=== PATIENT | female | born 1960 | race Caucasian/White ===

== ENCOUNTER 2020-03-23 15:11 | Outpatient (CLI) | payer BC, SELFPAY ==
--- NOTE | 2020-03-23 15:18 | MM_ITS ---
WS: [id number] BILATERAL DIGITAL SCREENING MAMMOGRAPHY WITH CAD CLINICAL INFORMATION: SCREENING HISTORY: Screening mammogram. No current complaints. COMPARISON: TECHNIQUE: Bilateral CC and MLO views. FINDINGS: Scattered fibroglandular densities bilaterally. No suspicious focal mass, asymmetry, calcifications, or architectural distortion. No evidence of malignancy. Lucent centered calcification right breast. MM/[place] [id number] IMPRESSION: BI-RADS: 2-Benign FOLLOW UP: 1 Year Follow-up Recommend return to annual screening mammography.
== END 2020-03-23 15:12 | disposition home or self-care (01) ==
LOC: RADSHAW 15:16
PROVIDERS: PCP Internal Medicine; Visit Provider Obstetrics & Gynecology
DX: Z12.31 Encounter for screening mammogram for malignant neoplasm of breast (principal)
CPT/HCPCS: 77067

== ENCOUNTER 2022-02-28 15:20 | Outpatient (CLI) | payer BC, SELFPAY ==
--- NOTE | 2022-02-28 15:42 | MM_ITS ---
WS: [id number] BILATERAL 3D TOMOSYNTHESIS DIGITAL SCREENING MAMMOGRAPHY WITH CAD CLINICAL INFORMATION: SCREEN HISTORY: Screening mammogram. No current complaints. COMPARISON: March 23, 2020 TECHNIQUE: Bilateral CC and MLO views. FINDINGS: Scattered fibroglandular densities bilaterally. No suspicious focal mass, asymmetry, calcifications, or architectural distortion. No evidence of malignancy. Incidental lucent centered calcification RIGH T breast. MM/[place] [id number] IMPRESSION: BI-RADS: 2-Benign FOLLOW UP: 1 Year Follow-up Recommend return to annual screening mammography.
== END 2022-02-28 15:21 | disposition home or self-care (01) ==
LOC: RAD 15:22
PROVIDERS: PCP Internal Medicine; Referring Provider Obstetrics & Gynecology; Visit Provider Internal Medicine
DX: Z12.31 Encounter for screening mammogram for malignant neoplasm of breast (principal)
CPT/HCPCS: 77063; 77067

== ENCOUNTER 2023-04-13 15:15 | Outpatient (CLI) | payer BC, SELFPAY ==
--- NOTE | 2023-04-13 15:23 | MM_ITS ---
WS: [id number] SCREENING DIGITAL TOMOSYNTHESIS MAMMOGRAM WITH CAD HISTORY: SCREENING COMPARISON: 02/28/2022 and 03/23/2020 Bilateral CC and MLO with tomosynthesis views submitted. Synthetic mammography reviewed. Computer aid ed detection analyzed. Breast composition: There are scattered areas of fibroglandular density. No suspicious masses, microc alcifications or architectural distortion. Benign calcification anterior RIGHT breast. IMPRESSION: MM/[place] [id number] BI-RADS: 2-Benign FOLLOW UP: 1 Year Follow-up
== END 2023-04-13 15:16 | disposition home or self-care (01) ==
LOC: RAD 15:16
PROVIDERS: PCP Internal Medicine; Visit Provider Obstetrics & Gynecology
DX: Z12.31 Encounter for screening mammogram for malignant neoplasm of breast (principal)
CPT/HCPCS: 77063; 77067

== ENCOUNTER 2024-04-16 13:56 | Outpatient (CLI) | payer BC, MEDICARE, SELFPAY ==
--- NOTE | 2024-04-16 14:07 | MM_ITS ---
WS: [id number] VIEWS: MLO and CC views both breasts. 3D digital tomosynthesis is also included in this exam. Comparison made with prior exam of 02/28/2022, 08/11/2008, 09/14/2009, 04/15/2011, 08/14/2012, 12/05/2013, , 01/15/2016, 01/23/2018, 01/21/2019, 03/23/2020, 04/13/2023.. Findings: There are scattered areas of fibroglandular density. No sign of suspicious mass, tumor calcification or architectural distortion. MM/MM scr BI tomosynthesis [id number] Impression: BI-RADS: 2 - Benign. FOLLOW-UP: 1 Year Follow-up This mammogram was also analyzed by the Computer Aided Detection System R2 Imag e Engraver Tender.
== END 2024-04-16 13:57 | disposition home or self-care (01) ==
LOC: RAD 13:58
PROVIDERS: PCP Internal Medicine; Visit Provider Nurse Practitioner Women's Health
DX: Z12.31 Encounter for screening mammogram for malignant neoplasm of breast (principal); R92.323 Mammographic fibroglandular density, bilateral breasts
CPT/HCPCS: 77063; 77067

== ENCOUNTER 2025-04-02 09:12 | Emergency (ER) | payer BC, SELFPAY ==
[2025-04-02 09:22] VITALS: BP 150/77; PULSE 79; RESP 18; TEMP 36.6; O2SAT 99; BMI 24.5
--- NOTE | 2025-04-02 09:26 | CT_ITS ---
WS: [id number] CT HEAD TECHNIQUE: Noncontrast CT of the head obtained from the skullbase to the vertex. CLINICAL INFORMATION: fall, head injury COMPARISON: None. DLP: 1071.[address] scans at [facility] use at least one of these dose optimization techniques: automated exposure control; mA and/or kV adjustment per patient size (includes targeted exams where dose is matched to clinical indication); or iterative reconstruction. FINDINGS: No evidence of intracranial hemorrhage or mass effect. Ventricular system and basal cisterns are patent. Mild small vessel changes with mild parenchymal volume loss. No extra-axial fluid collections. No evidence of mass or mass effect. Normal munguia-white differentiation. Mild mucosal thickening RIGHT frontoethmoidal recess and ethmoid air cells. Mastoid air cells are well aerated. Normal posterior nasopharynx. CT/CT head wo con* [id number] IMPRESSION: 1. No evidence of intracranial hemorrhage or mass effect. 2. No acute intracranial findings.
--- NOTE | 2025-04-02 09:26 | W.ED.SYNCOPE ---
HPI - Syncope General: Chief Complaint: Fall Stated Complaint: Passed out in the shower and hit her head Time Seen by Provider: 04/02/25 09:24 History of Present Illness: 64-year-old female with a history of hypertension who presents to the emergency room after having had a syncopal episode. She has not been feeling well for 5 to 6 days. She was taking a shower this morning and had a syncopal episode and hit her forehead. Says she was diagnosed with rhinovirus recently and has had some nausea but no pain and no vomiting. No anticoagulation. She is concerned she is dehydrated. Related Data Home Medications ?Medication ?Instructions ?Recorded ?Confirmed calcium 600 mg (as 1 tab PO DAILY 04/02/25 04/02/25 carbonate)-vitamin D3 5 mcg (200 unit) tablet (Calcium 600 + D(3)) hydrochlorothiazide 25 mg tablet 25 mg PO DAILY 04/02/25 04/02/25 ibuprofen 200 mg tablet (Advil) 200 mg PO Q6H PRN Fever Or Pain 04/02/25 04/02/25 zbnvglwr-dsw-crelp ac 400 1 tab PO DAILY 04/02/25 04/02/25 mcg-calcium carb 500 mg-vit K1 20 mcg tablet zinc gluconate 30 mg tablet 30 mg PO DAILY 04/02/25 04/02/25 Allergies Allergy/AdvReac Type Severity Reaction Status Date / Time No Known Allergies Allergy Verified 04/02/25 09:28 Review of Systems Narrative: Constitutional symptoms: Negative except as documented in HPI. Skin symptoms: Negative except as documented in HPI. Eye symptoms: Negative except as documented in HPI. ENMT symptoms: Negative except as documented in HPI. Respiratory symptoms: Negative except as documented in HPI. Cardiovascular symptoms: Negative except as documented in HPI. Gastrointestinal symptoms: Negative except as documented in HPI. Genitourinary symptoms: Negative except as documented in HPI. Musculoskeletal symptoms: Negative except as documented in HPI. Neurologic symptoms: Negative except as documented in HPI. Psychiatric symptoms: Negative except as documented in HPI. Endocrine symptoms: Negative except as documented in HPI. Physical Exam Narrative: EXAM NARRATIVE: General: Alert, no acute distress. Skin: Warm, dry. Head: Normocephalic, atraumatic. Neck: Supple, trachea midline. Eye: Extraocular movements are intact. Ears, nose, mouth and throat: mucosa moist. Cardiovascular: Regular, Normal peripheral perfusion. Respiratory: Lungs are clear to auscultation, respirations are non-labored, breath sounds are equal, Symmetrical chest wall expansion. Gastrointestinal: Soft, Nontender, Non distended Musculoskeletal: Normal ROM, no deformity. Neurological: Alert and oriented, No focal neurological deficit observed. Psychiatric: Cooperative, appropriate mood & affect. Course Vital Signs: Vital signs: Vital Signs Temperature 97.8 F 04/02/25 09:22 Pulse Rate 74 04/02/25 10:47 Respiratory Rate 18 04/02/25 09:22 Blood Pressure 143/71 04/02/25 10:47 Pulse Oximetry 98 04/02/25 10:47 Oxygen Delivery Me thod Room Air 04/02/25 10:47 MDM - Syncope Medical Decision Making Medical decision making Patient's reason for coming to the emergency room: Syncope, head injury Social determinants: Patient is employed I reviewed the patient's medical record. No previous visits to this facility I reviewed the patient's current home meds Hydrochlorothiazide is her only listed chronic medication Alternate historians: None Differential diagnosis including but not limited to and based on the above HPI, review of systems and physical exam in this patient with syncope: Vasovagal, orthostatics hypotension, cardiac dysrhythmia, myocardial infarction, infection and hypotension, Orders placed to evaluate differential diagnosis based on the above differential, HPI and physical exam Differential diagnosis including but not limited to and based on the above HPI, review of systems and physical exam: patient with fall and head injury. Subdural hematoma, subarachnoid hemorrhage, concussion, skull fracture. Orders placed to evaluate differential diagnosis based on the above differential, HPI and physical exam CT scan of the head was ordered. EKG: Time 927. Rate 72. Normal sinus rhythm, No ST-T changes, no ectopy, normal NH & QRS intervals, This was reviewed and interpreted by myself the ER physician at 934 CT head: No acute intracranial process. No intracranial hemorrhage, no evidence of infarct. No evidence of acute fracture. This was reviewed and interpreted by myself the emergency room physician. I also reviewed the radiology report. Lab Review: Laboratory results were reviewed and interpreted by myself the emergency room physician. No leukocytosis. No anemia. No renal failure. Liver enzymes are normal. Lactic acid is normal. Assessment of risk: Level of risk: Low risk patient Hospitalization considerations: No consideration of hospitalization at this time Reexamination: Patient remained stable. No increased work of breathing. No altered mental status. No focal motor deficits. Assessment and plan: Syncope Head injury Dehydration ?Normal saline bolus in the emergency room - Discharged home - Discussed findings and plan with patient. Answered any questions. - All laboratory values were reviewed and interpreted personally by myself, the ER physician - All imaging was reviewed and interpreted personally by myself, the ER physician. - Evaluation and treatment of this problem were appropriate in the emergency setting Lab Data 04/02/25 09:30 04/02/25 09:[address] 04/02/25:26 IMPRESSION: 1. No evidence of intracranial hemorrhage or mass effect. 2. No acute intracranial findings. Laboratory Results WBC 6.74 10^3/uL (3.29-11.43) 04/02/25 09:30 RBC 4.86 10^6/uL (3.85-5.65) 04/02/25 09:30 Hgb 14.70 g/dL (11.27-16.99) 04/02/25 09:30 Hct 43.6 % (36-47) 04/02/25 09:30 MCV 89.7 fl (85-98) 04/02/25 09:30 MCH 30.2 pg (27-33) 04/02/25 09:30 MCHC 33.7 g/dL (30-55) 04/02/25 09:30 RDW 12.6 % (12.1-15.1) 04/02/25 09:30 Plt Count 203 10^3/cmm (157-399) 04/02/25 09:30 MPV 10.3 fL (7.4-10.4) 04/02/25 09:30 Neut % (Auto) 73.0 % 04/02/25 09:30 Lymph % (Auto) 16.5 % 04/02/25 09:30 [place] % (Auto) 8.3 % 04/02/25 09:30 Eos % (Auto) 1.3 % 04/02/25 09:30 Baso % (Auto) 0.6 % 04/02/25 09:30 Neut # (Auto) 4.92 10^3/uL (1.8-7.7) 04/02/25 09:30 Lymph # (Auto) 1.1 10^3/uL (0.8-4.8) 04/02/25 09:30 [place] # (Auto) 0.6 10^3/uL (0.2-0.9) 04/02/25 09:30 Eos # (Auto) 0.1 10^3/uL (0.0-0.8) 04/02/25 09:30 Baso # (Auto) 0.0 10^3/uL (0.0-0.1) 04/02/25 09:30 Nucleated RBC % (auto) 0 % 04/02/25 09:30 Nucleated RBCs # 0.0 /100WBC 04/02/25 09:30 Sodium 136 mmol/L (136-145) 04/02/25 09:30 Potassium 3.6 mmol/L (3.5-5.1) 04/02/25 09:30 Chloride 95 mmol/L (98-107) L 04/02/25 09:30 Carbon Dioxide 28 mmol/L (22-29) 04/02/25 09:30 Anion Gap 16.6 (5-19) 04/02/25 09:30 BUN 19 mg/dL (8-23) 04/02/25 09:30 Creatinine 0.8 mg/dL (0.5-0.9) 04/02/25 09:30 GFR Calculation 71.8 mL/min (90-130) L 04/02/25 09:30 Glucose 107 mg/dL (65-115) 04/02/25 09:30 Calculated Osmolality 285 mOsm/kg (285-295) 04/02/25 09:30 Lactic Acid 1.2 mmol/L (0.5-2.2) 04/02/25 09:30 Calcium 9.5 mg/dL (8.5-10.5) 04/02/25 09:30 Total Bilirubin 0.3 mg/dL (0.15-1.2) 04/02/25 09:30 AST 27 U/L (0-32) 04/02/25 09:30 ALT 31 U/L (0-33) 04/02/25 09:30 Alkaline Phosphatase 78 U/L (35-105) 04/02/25 09:30 Total Protein 7.2 g/dL (6.6-8.7) 04/02/25 09:30 Albumin 4.6 g/dL (3.5-5.2) 04/02/25 09:30 Globulin 2.6 g/dL (1.3-4.6) 04/02/25 09:30 All radiology interpretation(s) finalized by discharge Discharge Plan Discharge Patient Disposition: Home Clinical Impression: Fall, Syncope, Head injury, Dehydration Condition: Stable Prescriptions: No Action calcium carbonate-vitamin D3 [Calcium 600 + D(3)] 600 mg-5 mcg (200 unit) Tablet 1 tab PO DAILY zinc gluconate 30 mg Tablet 30 mg PO DAILY ibuprofen [Advil] 200 mg Tablet 200 mg PO Q6H PRN (Reason: Fever Or Pain) hydrochlorothiazide 25 mg tablet 25 mg PO DAILY One-A-Day Women's 50 Plus 400 mcg-500 mg calcium-20 mcg Tablet 1 tab PO DAILY Discharge Orders: Discharge ED (Routine); Ordered 04/02/25 Ordered By: Raquel Smith Referrals: Hood Rivera MD [Primary Care Provider, Family Practice] Discharge Diet: Usual diet Discharge Activity: Increase activity as tolerated Patient Instructions: Syncope (ED), Opioid Safety, Pain Management, Patient Portal & [place] Instructions Activity Restrictions/Additional Instructions: Thank you for choosing [facility] for your healthcare needs today. You have been screened and evaluated and felt safe for discharge. Health conditions do change or evolve sometimes and as such it is important that you follow up with your Primary Doctor to be re checked, 3-5 days is a general good time frame for follow up. You are always welcome to return to the ED for re assessment if your symptoms are worsening or you have new concerns Print Language: Nepalese Coding Level of Care Code ED Front Office Specialist for Niyah Sawant
--- NOTE | 2025-04-02 09:27 | ECG_ITS ---
[facility] Test Date: 2025-04-02 Pat Name: Rita Odell Department: Room: Gender: Female [employer] Worker: : 1960 Requested By: Raquel Rogers Order Number: [id number] Gómez MD: Satya Collins M.D. Measurements Intervals [place] Rate: 72 P: 67 MO: 191 QRS: 61 QRSD: 86 T: 78 QT: 403 QTc: 443 Interpretive Statements SINUS RHYTHM No previous ECG available for comparison Electronically Signed On 04-02-2025 23:56:44 JEWELRY SORTER by Satya Collins M.D. [email or web address] [id number]
[2025-04-02 09:46] LABS: Hematocrit 43.6 % (36-47); Hemoglobin 14.70 g/dL (11.27-16.99); Mean Corpuscular HGB Conc 33.7 g/dL (30-55); Mean Corpuscular Hemoglobin 30.2 pg (27-33); Mean Corpuscular Volume 89.7 fl (85-98); Nucleated Red Blood Cells % 0 %; Platelet Count 203 10^3/cmm (157-399); Red Blood Count 4.86 10^6/uL (3.85-5.65); White Blood Count 6.74 10^3/uL (3.29-11.43)
[2025-04-02 09:58] LABS: Lactic Sepsis W/Reflex 1.2 mmol/L (0.5-2.2)
[2025-04-02 09:59] LABS: Alanine Aminotransferase 31 U/L (0-33); Albumin Level 4.6 g/dL (3.5-5.2); Alkaline Phosphatase 78 U/L (35-105); Anion Gap 16.6 (5-19); Aspartate Amino Transferase 27 U/L (0-32); Blood Urea Nitrogen 19 mg/dL (8-23); Calcium 9.5 mg/dL (8.5-10.5); Carbon Dioxide 28 mmol/L (22-29); Chloride 95 mmol/L (98-107); Globulin 2.6 g/dL (1.3-4.6); Glucose 107 mg/dL (65-115); Osmolality Calculated 285 mOsm/kg (285-295); Potassium 3.6 mmol/L (3.5-5.1); Sodium 136 mmol/L (136-145); Total Protein 7.2 g/dL (6.6-8.7)
[2025-04-02 10:47] VITALS: BP 143/71; PULSE 74; O2SAT 98
[2025-04-02 11:16] VITALS: BP 139/68; PULSE 70; O2SAT 99
== END 2025-04-02 11:17 | disposition home or self-care (01) ==
PROVIDERS: Emergency Provider Emergency Medicine; PCP Family Medicine
DX: R55 Syncope and collapse (principal); S09.90XA Unspecified injury of head, initial encounter; E86.0 Dehydration; W18.2XXA Fall in (into) shower or empty bathtub, initial encounter
CPT/HCPCS: 36415; 70450; 80053; 83605; 85025; 93005; 99284; J7030

== ENCOUNTER 2025-04-23 15:08 | Outpatient (CLI) | payer BC, SELFPAY ==
--- NOTE | 2025-04-23 15:11 | MM_ITS ---
WS: [id number] BILATERAL 3D TOMOSYNTHESIS DIGITAL SCREENING MAMMOGRAPHY WITH CAD CLINICAL INFORMATION: SCREENING MAMMOGRAM HISTORY: Screening mammogram. No current complaints. COMPARISON: 2023 TECHNIQUE: Bilateral CC and MLO views. FINDINGS: Scattered fibroglandular densities bilaterally. No suspicious focal mass, asymmetry, calcifications, or architectural distortion. No evidence of malignancy. Lucent centered calcification RIGHT breast MM/MM scr BI tomosynthesis [id number] IMPRESSION: DENSITY: There are scattered areas of fibroglandular density. BI-RADS: 2 - Benign. FOLLOW UP: 1 Year Follow-up Recommend return to annual screening mammography.
== END 2025-04-23 15:09 | disposition home or self-care (01) ==
LOC: RAD 15:10
PROVIDERS: PCP Family Medicine; Visit Provider Obstetrics & Gynecology
DX: Z12.31 Encounter for screening mammogram for malignant neoplasm of breast (principal); R92.1 Mammographic calcification found on diagnostic imaging of breast
CPT/HCPCS: 77063; 77067